=== PATIENT | male | born 1960 | race Two or more races ===

== ENCOUNTER 2017-10-25 15:48 | Emergency (ER) | payer SELFPAY ==
[~2017-10-25] VITALS: Ht 185.4 cm; Wt 65.0 kg
[2017-10-25 15:51] VITALS: BP 101/67
[2017-10-25] MEDS ORDERED: PIPERONYL BUTOXIDE/PYRETHRINS SHAMPOO TP SCH (16:30)
== END 2017-10-25 16:58 | disposition home or self-care (01) ==
LOC: ED 16:52
DX: B85.0 Pediculosis due to Pediculus humanus capitis (principal); E86.0 Dehydration; Z72.9 Problem related to lifestyle, unspecified; F17.200 Nicotine dependence, unspecified, uncomplicated
CPT/HCPCS: 99283